=== PATIENT | female | born 1955 | race Caucasian/White ===

== ENCOUNTER 2017-01-14 00:18 | Emergency (ER) | payer OTHER ==
[~2017-01-14] VITALS: Ht 157.5 cm; Wt 63.5 kg
[~2017-01-14 00:18] MED LIST: NARA2.5T PO; [UNRECOGNIZED DRUG - OTHER] OP
[2017-01-14 00:20] VITALS: BP_SYST 141
[2017-01-14] MEDS: LIDOCAINE VISCOUS 2%, 15 ML UDC MM ONE (00:33)
[2017-01-14] MEDS: MAG-AL HYDROX/SIMETH 30 ML UDC PO ONE (00:33)
[2017-01-14] MEDS: ONDANSETRON HCL 4 MG/2 ML VIAL IVP ONE (01:36)
[2017-01-14] MEDS: NACL 0.9% 1,000 ML IV ONE (01:36)
[2017-01-14] MEDS: MORPHINE 4 MG/ML INJ. SYRINGE IVP ONE (01:37)
[2017-01-14 01:55] LABS: MEAN CORPUSCULAR VOLUME 95 fL (79.0-98.0); RED CELL DISTRIBUTION WIDTH 12.6 % (9.0-15.0)
[2017-01-14 02:28] LABS: BASOPHILS # (AUTO) 0.4 K/uL (0.0-0.2); BASOPHILS % (AUTO) 2.1 % (0.0-2.0); HEMATOCRIT 40.6 % (36-48); HEMOGLOBIN 13.2 g/dL (12.0-16.0); LYMPHOCYTES # (AUTO) 1.1 K/uL (1.0-5.5); LYMPHOCYTES % (AUTO) 5.8 % (20.5-51.5); MEAN CORPUSCULAR HEMOGLOBIN 31 pg (27-31); MEAN CORPUSCULAR HGB CONC 33 % (32-36); MONOCYTES # (AUTO) 0.6 K/uL (0.0-1.0); MONOCYTES % (AUTO) 3.3 % (1.7-9.3); NEUTROPHILS # (AUTO) 16.4 K/uL (1.8-7.7); NEUTROPHILS % (AUTO) 88.8 % (40.0-70.0); PLATELET COUNT (AUTO) 234 K/uL (130-430); RED BLOOD CELL COUNT(AUTO) 4.27 MIL/uL (4.2-6.2); WHITE BLOOD COUNT (AUTO) 18.5 K/uL (4.8-10.8)
[2017-01-14 02:38] LABS: CALCIUM 9.7 mg/dL (8.4-11.0); CREATININE 0.59 mg/dL (0.55-1.30); POTASSIUM 4.4 mmol/L (3.5-5.1)
[2017-01-14 02:42] LABS: ALBUMIN 3.8 g/dL (3.4-4.8); TOTAL BILIRUBIN 0.8 mg/dL (0.0-1.0)
[2017-01-14 04:31] VITALS: BP_SYST 134
== END 2017-01-14 04:31 | disposition home or self-care (01) ==
LOC: SED 00:18
DX: R10.13 Epigastric pain (principal); R11.10 Vomiting, unspecified; G43.909 Migraine, unspecified, not intractable, without status migrainosus; Z91.018 Allergy to other foods
CPT/HCPCS: 36415; 80053; 82150; 83690; 85025; 96361; 96374; 96375; 99284; J2001; J2270; J2405; J7030